=== PATIENT | female | born 1960 | race Caucasian/White ===

== ENCOUNTER → 2017-12-03 06:55 | Outpatient (CLI) | payer MEDICAID, SELFPAY ==
--- NOTE | 2017-12-03 06:57 | BI_ITS ---
MAMMOGRAPHY - BILATERAL SCREENING 3-D MINNIE SYNTHESIS REASON FOR EXAM: Female, 57 years old. Bilateral Screening 3-D tomosynthesis PERTINENT HISTORY: Asymptomatic. No significant family history. TECHNIQUE: 2-D mammograms and 3-D Minnie synthesis of the breast (s) were performed. CAD was performed. charge histotechnologist notes best imaging possible, patient was lightheaded during exam and had to rest in between exposures. COMPARISON: 10/13/2011 through 06/19/2006. FINDINGS: The breast composition is fibroglandular densities. No new asymmetric density, dominant mass, dense spiculated masses, abnormal clustered microcalcifications, architectural distortion, skin thickening or nipple retraction identified. Coarse benign-appearing calcifications. There has been no significant change since the prior study. BI/SCREENING MAMM (CAD), BILAT IMPRESSION: No mammographic signs of malignancy. Routine yearly mammograms recommended. ASSESSMENT CATEGORY: BIRADS Category 2: Benign. A letter regarding these results will be sent to the patient by the facility within 30 days. FOLLOW UP RECOMMENDATION: Yearly follow up mammogram recommended. (A) Negative results should not deter biopsy as a palpable lesion should be followed on clinical grounds and biopsy performed if clinically persistent for 3 months or increasing size. Approximately 10% of breast cancers are not detected by mammography. A normal mammogram should not delay biopsy of a clinically suspicious abnormality. Electronically Signed: Irwin Pang, at 19:20 EDT Tel , Service support ,
== END ==
PROVIDERS: Visit Provider Nurse Practitioner Women's Health
DX: Z01.419 Encounter for gynecological examination (general) (routine) without abnormal findings (principal); Z12.31 Encounter for screening mammogram for malignant neoplasm of breast; Z11.51 Encounter for screening for human papillomavirus (HPV); Z12.4 Encounter for screening for malignant neoplasm of cervix
CPT/HCPCS: 77063; 77067

== ENCOUNTER 2018-10-06 17:50 | Emergency (ER) | payer MEDICAID, SELFPAY ==
[2018-10-06] VITALS (8 sets, daily range): BP systolic 125–149; BP diastolic 62–86; PULSE 55–68; RESP 15–18; TEMP 36.7; O2SAT 96–99; BMI 32.0
--- NOTE | 2018-10-06 17:59 | EKG12_ITS ---
Test Reason : CP Blood Pressure : / mmHG Vent. Rate : 056 BPM Atrial Rate : 056 BPM P-R Int : 178 ms QRS Dur : 078 ms QT Int : 396 ms P-R-T Axes : 057 024 038 degrees QTc Int : 382 ms Sinus bradycardia Otherwise normal ECG Confirmed by AYLA HUNTER, VELMA ([id number]), supervising film or videotape editor CLAUDINE WASHINGTON ([id number]) on 10/08/2018 1:08:11 PM Referred By: JUAN Confirmed By:VELMA AGUILA MD
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
--- NOTE | 2018-10-06 18:44 | CT_ITS ---
STUDY: CT CHEST WITH CONTRAST REASON FOR EXAM: Female, 57 years old. Posttraumatic pain RADIATION DOSAGE (If Supplied By Facility): CTDIvol = ( 19.40 ) mGy, DLP = ( 1758.27 ) mGycm TECHNIQUE: Transaxial imaging was performed following intravenous administration of 100 IV Isovue 300. Individualized dose optimization techniques were used for this CT. COMPARISON: None. FINDINGS: There is generalized interstitial thickening with groundglass opacity most pronounced in the lower lobes.. There is also minor atelectasis within the dependent portion of the lungs. There is no demonstrated pleural abnormality. Normal heart and pericardium. Normal mediastinum. Normal hilar regions. Normal enhanced pulmonary arteries. Normal aorta arch and descending thoracic aorta. Acute depressed fracture of the mid sternal body with overlapping of fracture fragments. There is presternal soft tissue swelling as well as soft tissue swelling within the anterior mediastinal fat Thoracic spine demonstrates mild spondylosis Small cyst in left lobe of the liver. CT/Chest WITH Contrast IMPRESSION: Acute mildly depressed fracture of the mid sternal body with associated presternal and retrosternal soft tissue swelling. Diffuse interstitial thickening and minor atelectasis within the dependent portion of the lungs Electronically Signed: Vamsi Kelly MD at 20:07 EDT , Service support ,
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
--- NOTE | 2018-10-06 20:43 | ED.RN ---
WHILE PT WAS IN THE BATHROOM SHE GOT DIZZY AND LAID ON THE GROUND, THIS NURSE HELPED THE PT BACK TO HER ROOM WITH A WHEELCHAIR AND NOTIFIED DR CORDERO WHO GAVE NFO'S.
--- NOTE | 2018-10-06 22:33 | ED.RN ---
DR CORDERO ORDERED C COLLAR FOR THIS PT. THIS NURSE PLACED COLLAR ON THIS PT, WHEN THIS NURSE WENT BACK INTO THE ROOM, THE PT HAD THE C COLLAR OFF AND STATED SHE DID NOT WANT IT ON. DR CORDERO WAS NOTIFIED
== END 2018-10-06 23:03 | disposition short-term general hospital (02) ==
PROVIDERS: Emergency Provider Emergency Medicine
DX: S22.20XA Unspecified fracture of sternum, initial encounter for closed fracture (principal); V89.2XXA Person injured in unspecified motor-vehicle accident, traffic, initial encounter; Y93.9 Activity, unspecified; Y92.9 Unspecified place or not applicable; R11.0 Nausea
CPT/HCPCS: 71260; 74177; 93005; 99285; Q9967; A4216

== ENCOUNTER 2023-03-28 12:51 | Day surgery (SDC) | payer MEDICAID, SELFPAY ==
[2023-03-28] VITALS (7 sets, daily range): BP systolic 80–114; BP diastolic 51–79; PULSE 51–76; RESP 16; TEMP 36.3–37.1; O2SAT 95–98; BMI 29.5
[2023-03-28] MEDS: Lactated Ringers 1,000 ML 15 ML IV (13:28)
--- NOTE | 2023-03-28 14:00 | COLBX_PTH ---
PATIENT: BEN OLEA LOC: EN U#:[id number] AGE/SX: 62/F ROOM: RE03/28/[address]: Dr. Norm Cintron MD : 1960 BED: DIS: 03/28/2023 SPEC #: [id number] RECD: 03/28/23 18:33 STATUS: DEVYN CORTES #: [id number] JAKOB: 03/28/23 14:[address]: Norm Cintron DEPT: SURGICAL PATHOLOGY RECD BY: Arielle Abarca ENTERED: 03/29/23 10:49 SP TYPE: COLON BX OTHR DR: No Primary Care Phys Tissues: A - Rectum, NOS B - Rectum, NOS Procedures: Surgery Specimen Level IV HEADER OPERATION: Colonoscopy PRE-OP DIAGNOSIS: History of colon Polyps TISSUE SUBMITTED: A - Rectal mass, B - Rectal polyp MICROSCOPIC DIAGNOSIS A. Rectal mass, biopsy: Fragments of tubulovillous adenoma. B. Rectal polyp, biopsy: Tubular adenoma. AM:sergio 03/30/2023 MICROSCOPIC DESCRIPTION Slides are reviewed. GROSS DESCRIPTION A - Received in fixative is one container labeled with the patient's name and designated rectal mass. The specimen consists of multiple irregular fragments of light chen soft tissue that in aggregate measure 2.2 x 1.0 x 0.1 cm. The specimen is totally submitted in one cassette. B - Received in fixative is one container labeled with the patient's name and designated Rectal polyp. The specimen consists of one irregular fragment of light chen soft tissue that measures 0.8 x 0.6 x 0.5 cm. The specimen is bisected and totally submitted in one cassette. / AM:sergio 03/29/2023 TC:5 CPT: 04662 x2
--- NOTE | 2023-03-28 14:41 | H&P.OPEN ---
HPI - General HPI Narrative BEN OLEA, is a 62 F who presents for screening colonoscopy. Her last colonoscopy was about 7 years ago and she did have a polyp. She reports no blood in her stool. She says she has been having diarrhea. [facility] Medical History (Updated 03/28/23 @ 14:[address] Norm Cintron MD) Family hx colonic polyps Hx of adenomatous polyp of colon Non-smoker Post-menopausal Wears glasses Home Medications NK 10/06/18 [History Last Taken Unknown] Allergy/AdvReac Type Severity Reaction Status Date / Time No Known Allergies Allergy Verified 03/28/23 13:27 Family History (Updated 03/20/23 @ 09:03 by Iram Yrok) Mother Colon polyp Surgical History Hx of colonoscopy Social History (Updated 03/20/23 @ 09:03 by Iram York) current occupational status: employed Smoking Status: Never smoker Past Medical/Surgical History Planned Operation Planned Operative Procedure/s: COLONOSCOPY-OA Previous Hospitalizations/Surgeries HX Hospitalizations: No Any Problems With Anesthesia: Yes (HARD TIME WAKING-) You/Your Family Experience Fever (Hyperthermia) With Anes: No Cholinesterase deficiency: No Cardiovascular Hx Hypertension: No Respiratory Hx Sleep Apnea: No Hx Respiratory Tract Infection/Cold (presently): No Do You Snore Loudly (louder than talking or can be heard): No Do You Often Feel Tired/ Fatigued/ Sleepy Dring Daytime?: No Has Anyone Observed You Stop Breathing During Sleep?: No Result (for STOP score): Negative Smoking Status: Never smoker Neurological Does patient have nerve stimulator: No Miscellaneous Recent Exposure to Contagious Disease: No Allergies No Known Allergies Allergy (Verified 03/28/23 13:27) Discharge Is Pt Admitted From a [facility], or a Senior Care: No After D/C, Where Do you Plan to Go: Return Home Vital Signs Vital Signs Vital Signs: 03/28/23 13:29 03/28/23 13:29 Temperature 97.8 F Temperature Source Temporal Pulse Rate 67 Respiratory Rate 16 Respiratory Pattern Normal Blood Pressure 109/79 Blood Pressure Mean 89 Blood Pressure Source Monitor Blood Pressure Position Semi-Fowlers Blood Pressure Location Left Arm Pulse Ox 98 Oxygen Delivery Method Room Air Weight Weight: 151 lb 3.794 oz Body Mass Index (BMI) 29.5 Physical Exam Const alert and oriented x3 HEENT normocephalic Eyes PERRL Resp normal respiratory effort and normal air movement Cardio regular rate and regular rhythm GI soft to palpation, non-tender and non-distended Extremity normal to inspection Assessment & Plan Assessment/Plan (1) History of colon polyps: PLAN: Patient had a polyp removed 7 years ago and is overdue for surveillance colonoscopy. I explained endoscopy in detail to the patient. I explained the risks including but not limited to stroke or heart attack with anesthesia, perforation of the GI tract, bleeding, infection. I explained that any of these could necessitate further emergency surgery. The patient understands and all questions were answered sufficiently. The patient wishes to proceed with procedure. Norm Cintron MD Pager: [facility] [address] [place] [address], [address] [place] [address] Office: Surgery Risks - Colonoscopy Risks Include but are not Limited To: Risks include but are not limited to: Bleeding, perforation requiring further surgery, inability to complete colonoscopy requiring barium enema.
--- NOTE | 2023-03-28 15:16 | OP.COLON_ITS ---
Patient Name: Mame Christianson Procedure Date: 03/28/2023 1:59 PM Date of : 1960 Age: 62 Procedure: Colonoscopy Indications: High risk colon cancer surveillance: Personal history of colonic polyps Providers: Norm Cintron MD Medicines: Monitored Anesthesia Care Patient Profile: This is a 62 year old female. Refer to note in patient chart for documentation of history and physical. Last Colonoscopy: several years ago. Complications: No immediate complications. Estimated blood loss: Minimal. Procedure: Pre-Anesthesia Assessment: - Prior to the procedure, a History and Physical was performed, and patient medications and allergies were reviewed. The patient's tolerance of previous anesthesia was also reviewed. The risks and benefits of the procedure and the sedation options and risks were discussed with the patient. All questions were answered, and informed consent was obtained. Prior Anticoagulants: The patient has taken no anticoagulant or antiplatelet agents. After reviewing the risks and benefits, the patient was deemed in satisfactory condition to undergo the procedure. After I obtained informed consent, the scope was passed under direct vision. Throughout the procedure, the patient's blood pressure, pulse, and oxygen saturations were monitored continuously. The Colonoscope was introduced through the anus and advanced to the cecum, identified by appendiceal orifice and ileocecal valve. The colonoscopy was performed without difficulty. The patient tolerated the procedure well. The quality of the bowel preparation was good. The ileocecal valve, appendiceal orifice, and rectum were photographed. Scope In: 2:51:21 PM Scope Withdrawal Time 0 hours 7 minutes 22 seconds Scope Out: 3:02:12 PM Total Procedure Duration Time 0 hours 10 minutes 51 seconds Findings: A polyp was found in the rectum. The polyp was semi-pedunculated. The polyp was removed with a hot snare. Resection and retrieval were complete. A frond-like/villous non-obstructing large mass was found in the rectum. The mass was non-circumferential. No bleeding was present. This was biopsied with a hot snare for histology. Impression: - One polyp in the rectum, removed with a hot snare. Resected and retrieved. - Rule out malignancy, tumor in the rectum. Biopsied. - Malignant-appearing tumor in the colon. Biopsied. Recommendation: - Discharge patient to home. - Resume previous diet. - Continue present medications. - Await pathology results. - Repeat colonoscopy for surveillance based on pathology results. Procedure Code(s): --- Professional --- 62981, Colonoscopy, flexible; with removal of tumor(s), polyp(s), or other lesion(s) by snare technique Diagnosis Code(s): --- Professional --- D49.0, Neoplasm of unspecified behavior of digestive system Z86.010, Personal history of colonic polyps D12.8, Benign neoplasm of rectum CPT copyright 2021 [employer]. All rights reserved. The codes documented in this report are preliminary and upon ordnance corps officer review may be revised to meet current compliance requirements. Norm Cintron MD 03/28/2023 3:15:50 PM This report has been signed electronically. Number of Addenda: 0 Note Initiated On: 03/28/2023 1:59 PM
== END 2023-03-28 15:57 | disposition home or self-care (01) ==
LOC: EN 12:55 → AC 12:55
PROVIDERS: Referring Provider Surgery; Visit Provider Surgery
PROC: 0DJD8ZZ Inspection of Lower Intestinal Tract, Via Natural or Artificial Opening Endoscopic (ICD-10-PCS; CPT 45378; principal; 2023-03-28 13:55)
DX: Z12.11 Encounter for screening for malignant neoplasm of colon (principal); Z86.010 Personal history of colon polyps; D12.8 Benign neoplasm of rectum
CPT/HCPCS: 45385; 88305; J7120; J2405

== ENCOUNTER 2024-06-24 07:39 | Day surgery (SDC) | payer MEDICAID, SELFPAY ==
[2024-06-24] VITALS (8 sets, daily range): BP systolic 77–160; BP diastolic 51–110; PULSE 60–72; RESP 16; TEMP 36.4–36.8; O2SAT 95–100; BMI 29.7
--- NOTE | 2024-06-24 08:17 | PRE.ANES_ITS ---
ASA Classification* ASA Classification ASA Classification: 2 Assessment & Plan Anesthesia* Anesthesia Assessment Anesthesia Assessment: Discussed sedation and/or anesthesia options, risks, benefits, and alternatives with patient/parents/legal guardian/POA. Questions invited. The patient/parents/legal guardian/POA seems to understand and agrees to proceed with anesthesia plan. Reviewed the physical assessment, medical history, allergy history and patient home medications list prior to surgery/procedure/anesthetic and documented any changes. Performed airway and anesthesia risk assessments. Anesthesia Type Anesthesia Type: MAC History Source History Obtained from:: Patient and Chart Anesthesia Focused Assessment* Temperature: 97.6 F Pulse Rate: 72 Blood Pressure: 111/87 Respiratory Rate: 16 Pulse Ox: 100 Oxygen Delivery Method: Room Air Airway Assessment Mouth opens: >3 cm Mallampati Score: I Teeth Condition: Caps/Crowns (Patient has a crown and a bridge on the left. They are both tight.) Neck Range of motion (ROM): Full ROM Focused Labs Anesthesia Preop lab: CBC CHEMISTRY COAG Pre-Assessment Diagnosis/Proposed Procedure Planned Operative Procedure(s): COLONOSCOPY-OA Anesthesia History Anesthesia History - community coordinator: Anesthesia History - community coordinator Hx Hospitalization No 06/20/24 08:36 Any Problems With Anesthesia Yes: HARD TIME WAKING- 06/20/24 08:36 Cholinesterase deficiency No 06/20/24 08:36 You/Your Family Experience No 06/20/24 08:36 fever (hyperthermia) with Relationship Recent Exposure to Contagious No 06/24/24 07:58 Disease Does patient have nerve No 06/20/24 08:36 stimulator Patient instructed to have device shut off --Does patient have Pacemaker No 06/24/24 07:58 or ICD? When Was Last Pacemaker Check QUESTION #4 FULL TEXT: You/Your Family Experience fever (hyperthermia) with Anesthesia Last Oral Intake Last Oral intake: Last Oral Intake NPO since 06:30 06/24/24 07:58 Meds taken in AM with sips of water? Meds patient instructed to take am of surgery Any additional information?: Yes NPO since: 06:30 (Patient had water at 6:30 AM.) PONV PONV - community coordinator: PONV - community coordinator Female Yes 06/20/24 08:36 HX of Motion Sickness No 06/20/24 08:36 HX of N/V After Surgery No 06/20/24 08:36 Non-Smoker Yes 06/20/24 08:36 Duration of Surgery greater No 06/20/24 08:36 than 60 minutes Number of Risk Factors 2 06/20/24 08:36 PONV Score Moderate Risk 06/20/24 08:36 Height & Weight Height & Weight: Anesthesia: Height & Weight Height 5 ft 06/24/24 07:58 Weight: 69 kg 06/24/24 07:58 Body Mass Index (BMI) 29.7 06/24/24 07:58 Respiratory Assessment Respiratory Assessment - community coordinator: Respiratory Tract Infection Hx - community coordinator Hx Respiratory Tract Infection No 06/20/24 08:36 STOP Sleep Apnea STOP Sleep Apnea - community coordinator: STOP Sleep Apnea - community coordinator Hx Hypertension No 06/20/24 08:36 Hx Sleep Apnea No 06/20/24 08:36 CPAP BIPAP Do you snore loudly (louder No 06/20/24 08:36 than talking or can be heard Do you often feel tired/ No 06/20/24 08:36 fatigued/ sleepy during daytime? Has anyone observed you stop No 06/20/24 08:36 breathing during sleep? STOP Results Negative 06/20/24 08:36 QUESTION #5 FULL TEXT : Do you snore loudly (louder than talking or can be h eard through closed doors)? 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 Specify any problems Hx of Preganancy in last 3 No 06/20/24 08:36 Months Nurse Filling Out Transfusion VCHRISTIN 06/20/24 08:36 & Questions: Date: 06/20/24 06/20/24 08:36 Time: 08:36 06/20/24 08:36 Patient unable to answer at this time (ie. confused, unrespo /Reproduction History /Reproductive History - community coordinator: /Reproductive Hx- community coordinator Hx Now Gestational Age (in weeks): EDC: Hx Hx Para Hx Section SAB PFSH Medical History Non-smoker Wears glasses Post-menopausal Non-smoker Family hx colonic polyps Hx of adenomatous polyp of colon Home Medications ?Medication ?Instructions ?Recorded ?Last Taken ?Type NK 06/20/24 Unknown History Allergy/AdvReac Type Severity Reaction Status Date / Time No Known Allergies Allergy Verified 06/24/24 07:56 Family History Mother Colon polyp Surgical History Hx of surgical procedure Hx of colonoscopy Social History current occupational status: employed Smoking Status: Never smoker Review of Systems (Anesthesia) ROS Narrative System reviewed and no additional complaints, except as documented.
--- NOTE | 2024-06-24 08:19 | H&P.OPEN ---
HPI - General HPI Narrative BEN OLEA, is a 63 F who presents for surveillance colonoscopy. The patient had a large mass identified on colonoscopy a year ago and was transferred to tertiary care center and they removed it transrectally. Patient has no new complaints. She is here for follow-up colonoscopy. [facility] Medical History (Updated 04/03/24 @ 14:26 by Vidal POMPA, PA) Non-smoker Wears glasses Post-menopausal Non-smoker Family hx colonic polyps Hx of adenomatous polyp of colon Home Medications ?Medication ?Instructions ?Recorded ?Last Taken ?Type NK 06/20/24 Unknown History Allergy/AdvReac Type Severity Reaction Status Date / Time No Known Allergies Allergy Verified 06/24/24 07:56 Family History (Updated 03/20/23 @ 09:03 by Iram York) Mother Colon polyp Surgical History (Updated 06/20/24 @ 08:36 by Mariam Barros) Hx of surgical procedure Hx of colonoscopy Social History (Updated 03/20/23 @ 09:03 by Iram York) current occupational status: employed Smoking Status: Never smoker Past Medical/Surgical History Planned Operation Planned Operative Procedure(s): COLONOSCOPY-OA Previous Hospitalizations/Surgeries HX Hospitalizations: No Any Problems With Anesthesia: Yes (HARD TIME WAKING-) You/Your Family Experience Fever (Hyperthermia) With Anes: No Cholinesterase deficiency: No Cardiovascular Hx Hypertension: No Respiratory Hx Sleep Apnea: No Hx Respiratory Tract Infection/Cold (presently): No Do You Snore Loudly (louder than talking or can be heard): No Do You Often Feel Tired/ Fatigued/ Sleepy Dring Daytime?: No Has Anyone Observed You Stop Breathing During Sleep?: No Result (for STOP score): Negative Smoking Status: Never smoker Neurological Does patient have nerve stimulator: No Miscellaneous Recent Exposure to Contagious Disease: No Allergies No Known Allergies Allergy (Verified 06/24/24 07:56) Discharge Is Pt Admitted From a Detention, or a [facility]sp: No After D/C, Where Do you Plan to Go: Return Home Vital Signs Vital Signs Vital Signs: 06/24/24 07:58 06/24/24 07:58 Temperature 97.6 F L Temperature Source Temporal Pulse Rate 72 Respiratory Rate 16 Respiratory Pattern Normal Blood Pressure 111/87 H Blood Pressure Mean 95 Blood Pressure Source Monitor Blood Pressure Position Semi-Fowlers Blood Pressure Location Left Arm Pulse Ox 100 Oxygen Delivery Method Room Air Weight Weight: 152 lb 1.903 oz Body Mass Index (BMI) 29.7 Physical Exam Const alert and oriented x3 HEENT normocephalic Eyes PERRL Resp normal respiratory effort and normal air movement Cardio regular rate and regular rhythm GI soft to palpation, non-tender and non-distended Extremity normal to inspection Assessment & Plan Assessment/Plan (1) Tubulovillous adenoma of rectum: PLAN: I explained endoscopy in detail to the patient. I explained the risks including but not limited to stroke or heart attack with anesthesia, perforation of the GI tract, bleeding, infection. I explained that any of these could necessitate further emergency surgery. The patient understands and all questions were answered sufficiently. The patient wishes to proceed with procedure. Norm Cintron MD Pager: [facility] [address] [place] [address], [address] [place] [address] Office: Surgery Risks - Colonoscopy Risks Include but are not Limited To: Risks include but are not limited to: Bleeding, perforation requiring further surgery, inability to complete colonoscopy requiring barium enema.
--- NOTE | 2024-06-24 08:52 | OP.COLON_ITS ---
Patient Name: Mame Christianson Procedure Date: 06/24/2024 8:26 AM Date of : 1960 Age: 63 Procedure: Colonoscopy Indications: High risk colon cancer surveillance: Personal history of colonic polyps Providers: Norm Cintron MD Referring MD: Norm Cintron MD Medicines: Propofol per Anesthesia Patient Profile: This is a 63 year old female. Refer to note in patient chart for documentation of history and physical. Last Colonoscopy: 1 year ago. Complications: No immediate complications. Procedure: Pre-Anesthesia Assessment: - Prior to the procedure, a History and Physical was performed, and patient medications and allergies were reviewed. The patient's tolerance of previous anesthesia was also reviewed. The risks and benefits of the procedure and the sedation options and risks were discussed with the patient. All questions were answered, and informed consent was obtained. Prior Anticoagulants: The patient has taken no anticoagulant or antiplatelet agents. After reviewing the risks and benefits, the patient was deemed in satisfactory condition to undergo the procedure. After I obtained informed consent, the scope was passed under direct vision. Throughout the procedure, the patient's blood pressure, pulse, and oxygen saturations were monitored continuously. The Colonoscope was introduced through the anus and advanced to the cecum, identified by appendiceal orifice and ileocecal valve. The colonoscopy was performed without difficulty. The patient tolerated the procedure well. The quality of the bowel preparation was good. The ileocecal valve, appendiceal orifice, and rectum were photographed. Scope In: 8:36:34 AM Scope Withdrawal Time 0 hours 6 minutes 33 seconds Scope Out: 8:50:29 AM Total Procedure Duration Time 0 hours 13 minutes 55 seconds Findings: The entire examined colon appeared normal on direct and retroflexion views. Impression: - The entire examined colon is normal on direct and retroflexion views. - No specimens collected. Recommendation: - Discharge patient to home. - Resume previous diet. - Continue present medications. - Repeat colonoscopy in 3 years for screening purposes. Procedure Code(s): --- Professional --- 15396, Colonoscopy, flexible; diagnostic, including collection of specimen(s) by brushing or washing, when performed (separate procedure) Diagnosis Code(s): --- Professional --- Z86.010, Personal history of colonic polyps CPT copyright 2022 [employer]. All rights reserved. The codes documented in this report are preliminary and upon ready mix truck driver review may be revised to meet current compliance requirements. Norm Cintron MD 06/24/2024 8:51:57 AM This report has been signed electronically. Number of Addenda: 0 Note Initiated On: 06/24/2024 8:26 AM
--- NOTE | 2024-06-24 08:52 | OP.CCLET_ITS ---
06/24/2024 No Primary Care Physician Re : Colonoscopy procedure for Mame Christianson Dear Care Physician This procedure was performed on Monday, June 24, 2024. My impressions and recommendations are as follows: Impressions : - The entire examined colon is normal on direct and retroflexion views. - No specimens collected. Recommendations : - Discharge patient to home. - Resume previous diet. - Continue present medications. - Repeat colonoscopy in 3 years for screening purposes. My findings are described in the full procedure note, which is enclosed. If I can be of further assistance, please feel free to contact me at Doctor phone number(s): , Work: . Sincerely, Norm Cintron MD 06/24/2024 8:51:57 AM This report has been signed electronically.
--- NOTE | 2024-06-24 08:59 | PCM.POST.ANE ---
Anesthesia: Postop Eval I Current Vital Signs Temperature: 97.9 F Pulse Rate: 63 Blood Pressure: 160/110 Respiratory Rate: 16 Pulse Ox: 96 Oxygen Delivery Method: Room Air Assessment Airway patent: Yes Spontaneous unlabored respirations: Yes Mental status: Asleep nausea: No Vomiting: No Anesthesia Complication: No Fluid Hydration Crystalloid volume administer (ml): 40 Total IV fluid infused: 40 Progress Note Anesthesia document: Postop Eval 1 completed: Yes
--- NOTE | 2024-06-24 18:32 | PCM.POSTANE2 ---
Anesthesia Postop Eval I Sum Postop Eval Completion status Anesthesia document: Postop Eval 1 completed: Yes Anesthesia Postop Eval I Summary Anesthesia Postop Eval I Summary: Anesthesia Postop Eval I: Assessment Summary Airway patent Yes 06/24/24 09:00 [email or web address] Spontaneous unlabored Yes 06/24/24 09:00 [email or web address] respirations Mental status Asleep 06/24/24 09:00 [email or web address] nausea No 06/24/24 09:00 [email or web address] Vomiting No 06/24/24 09:00 [email or web address] Anesthesia Postop Eval I: Fluid Summary Crystalloid volume administer 40 06/24/24 09:00 [email or web address] (ml) Colloids volume administered ( ml) Blood Product volume administered (ml) Total IV fluid infused 40 06/24/24 09:00 [email or web address] Anesthesia Postop Eval I: Summary Notes Anesthesia Complication No 06/24/24 09:00 [email or web address] Anesthesia Complication Comment: Post-operative progress note Anesthesia: Postop Eval II Evaluation Mental status: Awake and Calm Pain Level: 0 nausea: No Vomiting: No Complications Anesthesia Complication: No
== END 2024-06-24 09:22 | disposition home or self-care (01) ==
LOC: EN 07:40 → AC 07:41
PROVIDERS: Visit Provider Surgery
PROC: 0DJD8ZZ Inspection of Lower Intestinal Tract, Via Natural or Artificial Opening Endoscopic (ICD-10-PCS; CPT 45378; principal; 2024-06-24 08:40)
DX: Z12.11 Encounter for screening for malignant neoplasm of colon (principal); Z86.0100 Personal history of colon polyps, unspecified; Z83.719 Family history of colon polyps, unspecified
CPT/HCPCS: 45378; A4216; J2405